=== PATIENT | male | born 1970 | race Caucasian/White ===

== ENCOUNTER → 2016-09-23 | Outpatient (CLI) | payer OTHER ==
--- NOTE | 2016-09-23 13:25 | US ---
EXAMINATION TYPE: US venous doppler duplex LE BI DATE OF EXAM: 09/23/2016 12:23 PM COMPARISON: July 2016 in PACS CLINICAL HISTORY: Left leg pain and swelling, history of DVT left leg SIDE PERFORMED: Bilateral VESSELS IMAGED: External Iliac Vein (EIV) Common Femoral Vein Deep Femoral Vein Greater Saphenous Vein * Femoral Vein Popliteal Vein Small Saphenous Vein * Proximal Calf Veins (* superficial vessels) Right Leg: No evidence of DVT Left Leg: Partial flow and compression mid femoral vein to distal popliteal vein/ Improvement of thr ombus when compared to previous exam IMPRESSION: Chronic left-sided DVT.
== END | disposition home or self-care (01) ==
LOC: RADUSWWP 12:20
PROVIDERS: ATTEND Internal Medicine Hematology & Oncology
DX: I82.512 Chronic embolism and thrombosis of left femoral vein (principal); I82.532 Chronic embolism and thrombosis of left popliteal vein
CPT/HCPCS: 93965; 93970

== ENCOUNTER → 2016-12-23 | Outpatient (CLI) | payer OTHER ==
--- NOTE | 2016-12-23 20:51 | CT ---
EXAMINATION TYPE: CT angio chest DATE OF EXAM: 12/23/2016 5:30 PM COMPARISON: Prior CTA chest August 09, 2016. HISTORY: SOB, hx of DVT in legs. CT DLP: 790 mGycm. Automated Exposure Control for Dose Reduction was Utilized. CONTRAST: CTA scan of the thorax is performed with IV Contrast, patient injected with 100 mL of Omnipaque 350, pulmonary embolism protocol. MIP Images are created on CT scanner and reviewed. FINDINGS: LUNGS: A slightly elevated left hemidiaphragm is redemonstrated The lungs are grossly clear, there is no concerning parenchymal mass or nodule identified. There is no pleural effusion or pneumothorax seen. The tracheobronchial tree is patent. MEDIASTINUM: There is suboptimal bolus with more dense contrast noted in left heart system and aorta versus pulmonary arteries making evaluation for pulmonary embolism suboptimal. There are no greater than 1 cm hilar or mediastinal lymph nodes. No cardiomegaly or pericardial effusion is seen. OTHER: Mild multilevel spurring in the lower thoracic spine is present. IMPRESSION: Suboptimal study nondiagnostic for pulmonary embolism. Lungs remain clear without active or acute pulmonary process.
--- NOTE | 2016-12-24 07:55 | US ---
EXAMINATION TYPE: US venous doppler duplex LE BI DATE OF EXAM: 12/23/2016 5:45 PM COMPARISON: Prior in PACS CLINICAL HISTORY: I26.99 PE, I82.89 DVT. Known DVT in the left leg, patient is currently taking bloo d thinners SIDE PERFORMED: Bilateral TECHNIQUE: The lower extremity deep venous system is examined utilizing real time linear array sonog yasir with graded compression, doppler sonography and color-flow sonography. VESSELS IMAGED: External Iliac Vein (EIV) Common Femoral Vein Deep Femoral Vein Greater Saphenous Vein * Femoral Vein Popliteal Vein Small Saphenous Vein * Proximal Calf Veins (* superficial vessels) IMPRESSION:. Right Leg: Negative for DVT Left Leg: There is non-occluding DVT from the left upper popliteal to the left lower popliteal vein
== END | disposition home or self-care (01) ==
LOC: RADCTMAIN 16:57
PROVIDERS: ATTEND Internal Medicine Hematology & Oncology
DX: Z09 Encounter for follow-up examination after completed treatment for conditions other than malignant neoplasm (principal); Z86.711 Personal history of pulmonary embolism; Z86.718 Personal history of other venous thrombosis and embolism
CPT/HCPCS: 93970; 71275; Q9967

== ENCOUNTER → 2017-07-23 | Outpatient (CLI) | payer OTHER ==
--- NOTE | 2017-07-23 18:31 | US ---
EXAMINATION TYPE: US venous doppler duplex LE BI DATE OF EXAM: 07/23/2017 5:33 PM COMPARISON: 12/23/2016 CLINICAL HISTORY: PE, and DVT I82.412 I26.99. Known chronic DVT in the left popiteal on previous ex am SIDE PERFORMED: Bilateral TECHNIQUE: The lower extremity deep venous system is examined utilizing real time linear array sonog yasir with graded compression, doppler sonography and color-flow sonography. VESSELS IMAGED: External Iliac Vein (EIV) Common Femoral Vein Deep Femoral Vein Greater Saphenous Vein * Femoral Vein Popliteal Vein Small Saphenous Vein * Proximal Calf Veins (* superficial vessels) Right Leg: Negative for DVT Left Leg: There is no-occluding chronic DVT from the left upper popliteal to the lower popliteal IMPRESSION: There is thrombus in the popliteal vein which is not completely occluding and is consiste nt with chronic deep venous thrombosis. No evidence of any new thrombus compared to old exam.
--- NOTE | 2017-07-23 18:39 | CT ---
EXAMINATION TYPE: CT angio chest DATE OF EXAM: 07/23/2017 6:00 PM COMPARISON: 12/23/2016 HISTORY: Follow up scan. Shortness of breath CT DLP: 629.5 mGycm Automated exposure control for dose reduction was used. CONTRAST: CTA scan of the thorax is performed with IV Contrast, patient injected with 100 mL of Omnipaque 350, pulmonary embolism protocol. There are 3-D post processed images.. FINDINGS: The lungs are clear of infiltrate. There is no evidence of a pulmonary mass. There is no pleural effu julita. Heart size is normal. There is no pericardial effusion. There is normal contrast opacification of the pulmonary arteries. I see no filling defect. There is no mediastinal adenopathy. There are no hilar masses. There is spurring in the thoracic spine. There is no sign of aortic aneurysm or dissect ion. IMPRESSION: NEGATIVE CT ANGIOGRAM OF THE CHEST. NO EVIDENCE OF PULMONARY EMBOLISM. NO ADVERSE CHANGE COMPARED TO OLD EXAM.
== END | disposition home or self-care (01) ==
LOC: RADCTMAIN 17:01
PROVIDERS: ATTEND Internal Medicine Hematology & Oncology
DX: I82.432 Acute embolism and thrombosis of left popliteal vein (principal); I26.99 Other pulmonary embolism without acute cor pulmonale
CPT/HCPCS: 93970; 71275; Q9967

== ENCOUNTER → 2019-03-05 | Outpatient (CLI) | payer OTHER ==
--- NOTE | 2019-03-05 11:18 | US ---
EXAMINATION TYPE: US venous doppler duplex LE LT DATE OF EXAM: 03/05/2019 10:50 AM COMPARISON: 07/23/2017 CLINICAL HISTORY: R22.42 swelling left lower limb M25.562 L knee. History of DVT left leg SIDE PERFORMED: left TECHNIQUE: The lower extremity deep venous system is examined utilizing real time linear array sonog yasir with graded compression, doppler sonography and color-flow sonography. VESSELS IMAGED: External Iliac Vein (EIV) Common Femoral Vein Deep Femoral Vein Greater Saphenous Vein * Femoral Vein Popliteal Vein Small Saphenous Vein * Proximal Calf Veins (* superficial vessels) Grayscale, color doppler, spectral doppler imaging performed of the deep veins of the left lower extr emity. There is normal flow, compressibility, vascular waveforms. Left Leg: +Positive for non-occluding DVT left femoral vein lower extending into popliteal vein, abhinav ears chronic, thready flow with partial compression IMPRESSION: Nonoccluding deep venous thrombosis within the left lower extremity extending from the fe moral vein into the popliteal vein. This appears chronic as partial compression is possible. Thrombus was present at this location on the exam of 07/23/2017. Preliminary results given to Emmie at end of exam
[2019-03-05 11:37] LABS: African American GFR (CKD) >90 (>60 ml/min/1.73 sqM); Anion Gap 6 mmol/L; Blood Urea Nitrogen 8 mg/dL (9-20); Calcium 9.3 mg/dL (8.4-10.2); Carbon Dioxide 29 mmol/L (22-30); Chloride 105 mmol/L (98-107); Cholesterol 177 mg/dL (<200); Glucose 89 mg/dL (74-99); HDL Cholesterol 50 mg/dL (40-60); INR 0.9 (<1.2); LDL Cholesterol,Calculated 104 mg/dL (0-99); Potassium 4.7 mmol/L (3.5-5.1); Prothrombin Time 9.7 sec (9.0-12.0); Sodium 140 mmol/L (137-145); Triglycerides 115 mg/dL (<150)
[2019-03-05 11:41] LABS: Anisocytosis Slight; HCT 43.3 % (39.0-53.0); HGB 14.3 gm/dL (13.0-17.5); MCH 30.5 pg (25.0-35.0); MCHC 32.9 g/dL (31.0-37.0); MCV 92.5 fL (80.0-100.0); Mean Platelet Volume 8.2; Platelet Count 203 k/uL (150-450); RBC 4.68 m/uL (4.30-5.90); RDW 17.1 % (11.5-15.5); WBC 6.6 k/uL (3.8-10.6)
--- NOTE | 2019-03-05 12:34 | XR ---
Left knee HISTORY: Left knee swelling and pain 3 views of the left knee Bone mineralization, joint spaces and alignment are maintained. There is no fracture or dislocation. No evident joint effusion. IMPRESSION: No significant abnormalities evident.
== END | disposition home or self-care (01) ==
LOC: RADUSWWP 10:04
PROVIDERS: ATTEND Nurse Practitioner Adult Health
DX: I82.412 Acute embolism and thrombosis of left femoral vein (principal)
CPT/HCPCS: 36415; 80048; 80061; 85027; 85610

== ENCOUNTER → 2019-03-16 | Outpatient (CLI) | payer OTHER ==
--- NOTE | 2019-03-16 09:14 | MR ---
EXAMINATION TYPE: MR knee LT wo con DATE OF EXAM: 03/16/2019 COMPARISON: None HISTORY: L knee pain TECHNIQUE: Multiplanar, multisequence images of the knee is performed without IV contrast. FINDINGS: MEDIAL MENISCUS: Undersurface tear involving the posterior horn medial meniscus. Anterior horn is int act. LATERAL MENISCUS: Anterior and posterior horns are intact without tear. CRUCIATE LIGAMENTS: The anterior and posterior cruciate ligaments are intact and unremarkable. COLLATERAL LIGAMENTS: The medial collateral ligament and lateral collateral ligament complex are inta ct and unremarkable. EXTENSOR MECHANISM: Visualized quadriceps and patellar tendons are intact. EFFUSION: No significant suprapatellar joint effusion. POPLITEAL CYST: No popliteal/arora cyst. TRICOMPARTMENT SPACES: Intact CARTILAGE: Intact BONE MARROW SIGNAL: No focal abnormal marrow signal is appreciated. OTHER: No additional significant abnormality is appreciated. IMPRESSION: tear involving the posterior horn medial meniscus.
== END | disposition home or self-care (01) ==
LOC: RADMRIMAIN 07:34
PROVIDERS: ATTEND Internal Medicine
DX: S83.242A Other tear of medial meniscus, current injury, left knee, initial encounter (principal)

== ENCOUNTER 2022-02-02 10:46 | Emergency (ER) | payer OTHER ==
[2022-02-02] MEDS ORDERED: SODIUM CHLORIDE 0.9% 1,000 ML IV STA (11:18)
[2022-02-02] MEDS ORDERED: KETOROLAC 15 MG/ML 1 ML VIAL IVP STA (11:20)
[2022-02-02 11:59] VITALS: TEMP 98.3
[2022-02-02 12:07] LABS: ALT 18 U/L (4-49); AST 18 U/L (17-59); African American GFR (CKD) >90 (>60 ml/min/1.73 sqM); Albumin 4.2 g/dL (3.5-5.0); Alkaline Phosphatase 63 U/L (38-126); Amylase 45 U/L (30-110); Anion Gap 8 mmol/L; Blood Urea Nitrogen 12 mg/dL (9-20); Calcium 8.9 mg/dL (8.4-10.2); Carbon Dioxide 27 mmol/L (22-30); Chloride 101 mmol/L (98-107); Glucose 99 mg/dL (74-99); Lipase 57 U/L (23-300); Non-African American GFR(CKD) >90 (>60 ml/min/1.73 sqM); Potassium 4.2 mmol/L (3.5-5.1); Sodium 136 mmol/L (137-145); Total Bilirubin 0.8 mg/dL (0.2-1.3); Total Protein 7.2 g/dL (6.3-8.2)
[2022-02-02 12:09] LABS: Anisocytosis Slight; Basophils # (A) 0.1 k/uL (0-0.2); Basophils % (A) 1 %; Eosinophils # (A) 0.1 k/uL (0-0.7); Eosinophils % (A) 1 %; HCT 47.6 % (39.0-53.0); HGB 15.3 gm/dL (13.0-17.5); Lymphocytes # (A) 1.9 k/uL (1.0-4.8); Lymphocytes % (A) 23 %; MCH 30.3 pg (25.0-35.0); MCV 94.6 fL (80.0-100.0); Mean Platelet Volume 9.8; Monocytes # (A) 0.8 k/uL (0-1.0); Monocytes % (A) 9 %; Neutrophils # (A) 5.4 k/uL (1.3-7.7); Neutrophils % (A) 65 %; Platelet Count 218 k/uL (150-450); RBC 5.03 m/uL (4.30-5.90); RDW 16.1 % (11.5-15.5); WBC 8.4 k/uL (3.8-10.6)
[2022-02-02 12:14] LABS: Appearance,Urine Clear (Clear); Bilirubin,Urine 1+ (Negative); Blood,Urine Trace (Negative); Color,Urine Yellow; Glucose,Urine (UA) Negative (Negative); Ketones,Urine 2+ (Negative); Leukocyte Esterase,Urine Negative (Negative); Mucus,Urine Occasional /hpf; Nitrite,Urine Negative (Negative); PH, Urine 5.5 (5.0-8.0); Protein,Urine 1+ (Negative); RBC,Urine <1 /hpf (0-5); Specific Gravity,Urine 1.029 (1.001-1.035); WBC,Urine 1 /hpf (0-5)
[2022-02-02 12:18] LABS: INR 0.9 (<1.2); Partial Thromboplastin Time 26.5 sec (22.0-30.0)
--- NOTE | 2022-02-02 12:40 | CT ---
EXAMINATION TYPE: CT abdomen pelvis w con DATE OF EXAM: 02/02/2022 COMPARISON: None. HISTORY: Abdominal pain, nausea, vomiting and constipation x [address] DLP: 2698.4 mGycm, Automated Exposure Control for Dose Reduction was Utilized. CONTRAST: CT scan of the abdomen and pelvis is performed without oral but with IV Contrast, patient injected wi th 100 ml mL of Isovue 300. FINDINGS: LUNG BASES: Elevated left hemidiaphragm. LIVER/GB: Visualized liver is heterogeneously hypodense consistent with diffuse fatty infiltration. PANCREAS: No significant abnormality is seen. SPLEEN: No significant abnormality is seen. ADRENALS: No significant abnormality is seen. KIDNEYS: No significant abnormality is seen. BOWEL: Suboptimal evaluation without enteric contrast. Stomach shows no suspicious dilatation. No prince picious dilated small bowel loops. Fluid-filled prominent right colon is abnormal extending into the less prominent but fluid filled transverse colon. Finding consistent with diarrhea and/or mild uncomp licated colitis. Remainder of the colon shows some fecal debris without suspicious dilatation. Occasi onal diverticula without diverticulitis. PROSTATE/SEMINAL VESICLES: No gross abnormality seen. LYMPH NODES: No greater than 1cm abdominal or pelvic lymph nodes are appreciated. OSSEOUS STRUCTURES: Mild to moderate disc space narrowing L5-S1 level. OTHER: No significant additional abnormality is seen. IMPRESSION: Slightly prominent right and transverse colon with intraluminal fluid consistent with mil d uncomplicated colitis and/or diarrhea. Correlate clinically.
[2022-02-02] MEDS ORDERED: DICYCLOMINE 10 MG/ML 2 ML AMP IM STA (14:37)
--- NOTE | 2022-02-02 15:43 | ED ---
Abdominal Pain HPI - General Chief Complaint: Abdominal Pain Stated Complaint: Vomiting/nausea/constipation Time Seen by Provider: 02/02/22 11:04 Source: patient Mode of arrival: ambulatory Limitations: no limitations - History of Present Illness Initial Comments: Patient is a 51-year-old male presenting with chief complaint of abdominal pain. Patient states the pain has been increasing throughout the last week, patient has not had a bowel movement in one week and is complaining of bloating and distention. He has attempted taking MiraLAX at home and a "natural laxative" which has not been helpful in alleviating his symptoms. Patient states that the pain is colicky, is a cramping like sensation that comes and goes throughout the day. Patient states that taking a deep breath results in increased abdominal pain and pressure. Patient states that the pain is also radiating to his back. Denies chest pain, shortness of breath, palpitations, weakness, vomiting, nausea, diarrhea, fever, chills, dysuria, hematuria, urgency, frequency. - Related Data Previous Rx's Medication Instructions Recorded Rivaroxaban [Xarelto] 15 mg PO BID 21 Days tab 07/29/16 Rivaroxaban [Xarelto] 15 mg PO BID #60 tab 08/12/16 Amoxic-Pot Clav 875-125Mg 1 tab PO BID 10 Days #20 tab 02/02/22 [Augmentin 875-125] Docusate [Colace] 100 mg PO DAILY #10 capsule 02/02/22 Allergies Allergy/AdvReac Type Severity Reaction Status Date / Time No Known Allergies Allergy Verified 02/02/22 10:58 Review of Systems ROS Statement: Those systems with pertinent positive or pertinent negative responses have been documented in the HPI. ROS Other: All systems not noted in ROS Statement are negative. Past Medical History Past Medical History: COPD, Deep Vein Thrombosis (DVT) Additional Past Medical History / Comment(s): left knee torn miniscus, History of Any Multi-Drug Resistant Organisms: None Reported Past Surgical History: Orthopedic Surgery Additional Past Surgical History / Comment(s): hand surgery, right knee arthroscopy, skin cancer removed from face Past Anesthesia/Blood Transfusion Reactions: No Reported Reaction Past Psychological History: No Psychological Hx Reported Smoking Status: Current every day smoker Past Alcohol Use History: None Reported Past Drug Use History: Marijuana - Past Family History Mother Family Medical History: Congestive Heart Failure (CHF) Father Family Medical History: Cancer Additional Family Medical History / Comment(s): intestinal cancer General Exam Limitations: no limitations General appearance: alert, in no apparent distress Head exam: Present: atraumatic, normocephalic, normal inspection Eye exam: Present: normal appearance, EOMI. Absent: scleral icterus Neck exam: Present: normal inspection Respiratory exam: Present: normal lung sounds bilaterally. Absent: respiratory distress, wheezes, rales, rhonchi, stridor Cardiovascular Exam: Present: regular rate, normal rhythm, normal heart sounds. Absent: systolic murmur, diastolic murmur, rubs, gallop, clicks GI/Abdominal exam: Present: distended, tenderness, normal bowel sounds. Absent: soft, guarding, rebound Back exam: Present: paraspinal tenderness Neurological exam: Present: alert, oriented X3, CN II-XII intact Psychiatric exam: Present: normal affect, normal mood Skin exam: Present: warm, dry, intact, normal color. Absent: rash Course Vital Signs 02/02/22 02/02/22 02/02/22 10:54 11:56 14:50 Temperature 98.1 F 98.3 F Pulse Rate 77 79 73 Respiratory 16 12 14 Rate Blood Pressure 127/82 131/88 131/86 O2 Sat by Pulse 96 91 L 93 L Oximetry Medical Decision Making - Medical Decision Making Patient is a 51-year-old male presenting with chief complaint of abdominal pain and distention. Patient states he has not had a bowel movement for one week. Denies nausea, vomiting, fever, chills. On exam the patient is distended, diffuse tenderness not out of proportion to exam, normal bowel sounds in all 4 quadrants. Lab work shows mild hyponatremia with sodium of 136, patient is being given IV fluids. Urine shows 1+ protein, 2+ ketones, trace blood, +[address] of the abdomen and pelvis with contrast shows slightly prominent right and transverse colon with intraluminal fluid consistent with mild uncomplicated colitis and/or diarrhea. I discussed these findings with Dr. North my attending, she advised treatment for colitis and discharged with bowel hygiene education. Educated the patient on the findings. Patient will be treated with Augmentin 875 twice a day for 10 days. Also advised him to utilize magnesium citrate, Colace, MiraLAX. Follow-up with PCP in one to 2 days. I provided him with a referral for PCP. Report back to ER if any worsening symptoms. I educated him on return parameters. Answered all questions. Patient conveyed verbal understanding and agreed to the plan. I discussed this case with my attending Dr. North. - Lab Data Result diagrams: 02/02/22 11:42 02/02/22 11:42 Lab Results 02/02/22 02/02/22 02/02/22 Range/Units 11:42 11:42 11:42 WBC 8.4 (3.8-10.6) k/uL RBC 5.03 (4.30-5.90) m/uL Hgb 15.3 (13.0-17.5) gm/dL Hct 47.6 (39.0-53.0) % MCV 94.6 (80.0-100.0) fL MCH 30.3 (25.0-35.0) pg MCHC 32.0 (31.0-37.0) g/dL RDW 16.1 H (11.5-15.5) % Plt Count 218 (150-450) k/uL MPV 9.8 Neutrophils % 65 % Lymphocytes % 23 % Monocytes % 9 % Eosinophils % 1 % Basophils % 1 % Neutrophils # 5.4 (1.3-7.7) k/uL Lymphocytes # 1.9 (1.0-4.8) k/uL Monocytes # 0.8 (0-1.0) k/uL Eosinophils # 0.1 (0-0.7) k/uL Basophils # 0.1 (0-0.2) k/uL Anisocytosis Slight PT 10.0 (9.0-12.0) sec INR 0.9 (<1.2) APTT 26.5 (22.0-30.0) sec Sodium 136 L (137-145) mmol/L Potassium 4.2 (3.5-5.1) mmol/L Chloride 101 (98-107) mmol/L Carbon Dioxide 27 (22-30) mmol/L Anion Gap 8 mmol/L BUN 12 (9-20) mg/dL Creatinine 0.84 (0.66-1.25) mg/dL Est GFR (CKD-EPI)AfAm >90 (>60 ml/min/1.73 sqM) Est GFR (CKD-EPI)NonAf >90 (>60 ml/min/1.73 sqM) Glucose 99 (74-99) mg/dL Plasma Lactic Acid Francisco (0.7-2.0) mmol/L Calcium 8.9 (8.4-10.2) mg/dL Total Bilirubin 0.8 (0.2-1.3) mg/dL AST 18 (17-59) U/L ALT 18 (4-49) U/L Alkaline Phosphatase 63 (38-126) U/L Troponin I (0.000-0.034) ng/mL Total Protein 7.2 (6.3-8.2) g/dL Albumin 4.2 (3.5-5.0) g/dL Amylase 45 (30-110) U/L Lipase 57 (23-300) U/L Urine Color Urine Appearance (Clear) Urine pH (5.0-8.0) Ur Specific Kimberly (1.001-1.035) Urine Protein (Negative) Urine Glucose (UA) (Negative) Urine Ketones (Negative) Urine Blood (Negative) Urine Nitrite (Negative) Urine Bilirubin (Negative) Urine Urobilinogen (<2.0) mg/dL Ur Leukocyte Esterase (Negative) Urine RBC (0-5) /hpf Urine WBC (0-5) /hpf Urine Mucus (None) /hpf 02/02/22 02/02/22 02/02/22 Range/Units 11:42 11:42 11:55 WBC (3.8-10.6) k/uL RBC (4.30-5.90) m/uL Hgb (13.0-17.5) gm/dL Hct (39.0-53.0) % MCV (80.0-100.0) fL MCH (25.0-35.0) pg MCHC (31.0-37.0) g/dL RDW (11.5-15.5) % Plt Count (150-450) k/uL MPV Neutrophils % % Lymphocytes % % Monocytes % % Eosinophils % % Basophils % % Neutrophils # (1.3-7.7) k/uL Lymphocytes # (1.0-4.8) k/uL Monocytes # (0-1.0) k/uL Eosinophils # (0-0.7) k/uL Basophils # (0-0.2) k/uL Anisocytosis PT (9.0-12.0) sec INR (<1.2) APTT (22.0-30.0) sec Sodium (137-145) mmol/L Potassium (3.5-5.1) mmol/L Chloride (98-107) mmol/L Carbon Dioxide (22-30) mmol/L Anion Gap mmol/L BUN (9-20) mg/dL Creatinine (0.66-1.25) mg/dL Est GFR (CKD-EPI)AfAm (>60 ml/min/1.73 sqM) Est GFR (CKD-EPI)NonAf (>60 ml/min/1.73 sqM) Glucose (74-99) mg/dL Plasma Lactic Acid Francisco 0.8 (0.7-2.0) mmol/L Calcium (8.4-10.2) mg/dL Total Bilirubin (0.2-1.3) mg/dL AST (17-59) U/L ALT (4-49) U/L Alkaline Phosphatase (38-126) U/L Troponin I 0.024 (0.000-0.034) ng/mL Total Protein (6.3-8.2) g/dL Albumin (3.5-5.0) g/dL Amylase (30-110) U/L Lipase (23-300) U/L Urine Color Yellow Urine Appearance Clear (Clear) Urine pH 5.5 (5.0-8.0) Ur Specific Kimberly 1.029 (1.001-1.035) Urine Protein 1+ H (Negative) Urine Glucose (UA) Negative (Negative) Urine Ketones 2+ H (Negative) Urine Blood Trace H (Negative) Urine Nitrite Negative (Negative) Urine Bilirubin 1+ H (Negative) Urine Urobilinogen 2.0 (<2.0) mg/dL Ur Leukocyte Esterase Negative (Negative) Urine RBC <1 (0-5) /hpf Urine WBC 1 (0-5) /hpf Urine Mucus Occasional H (None) /hpf Disposition Clinical Impression: Colitis Disposition: HOME SELF-CARE Condition: Good Instructions (If sedation given, give patient instructions): Constipation (DC), High Fiber Diet (ED), Colitis (ED) Additional Instructions: Take magnesium citrate, MiraLAX, and Colace at home as directed. Take antibiotic as prescribed. Follow-up with PCP in one to 2 days. Report back to ER if any worsening symptoms. Prescriptions: Amoxic-Pot Clav 875-125Mg [Augmentin 875-125] 1 tab PO BID 10 Days #20 tab Docusate [Colace] 100 mg PO DAILY #10 capsule Is patient prescribed a controlled substance at d/c from ED?: No Referrals: Francine Mcghee MD [REFERRING] - 1-2 days Time of Disposition: 15:50
[2022-02-02 16:36] VITALS: BP 138/87; PULSE 72; RESP 20
== END 2022-02-02 16:42 | disposition home or self-care (01) ==
LOC: EC 10:46
DX: K52.9 Noninfective gastroenteritis and colitis, unspecified (principal); J44.9 Chronic obstructive pulmonary disease, unspecified; F17.200 Nicotine dependence, unspecified, uncomplicated
CPT/HCPCS: 36415; 93005; 80053; 82150; 83605; 83690; 84484; 85025; 85610; 85730; 81001; 74177; 99284; 96374; 96372; J0500; J1885; Q9967